=== PATIENT | female | born 1975 | race Two or more races ===

== ENCOUNTER 2024-04-26 21:05 | Inpatient (IN) | payer BC, OTHER ==
[~2024-04-26] VITALS: Ht 160 cm; Wt 59.0 kg
[2024-04-26 22:28] LABS: Basophils # (auto) 0 10 ^3/uL (0-0.2); Basophils % (auto) 0.3 % (0.0-2.0); Eosinophils # (auto) 0.1 10 ^3/uL (0-0.8); Eosinophils % (auto) 1.6 % (0.0-7.0); Hematocrit 37.3 % (36.0-46.0); Hemoglobin 12.4 g/dL (12.2-16.2); Lymphocytes # (auto) 1.8 10 ^3/uL (0.4-5.4); Lymphocytes % (auto) 20.5 % (10.0-50.0); Mean Corpuscular Hemoglobin 30.2 pg (28.0-32.0); Mean Corpuscular Hgb Conc. 33.3 g/dL (32.0-36.0); Mean Corpuscular Volume 90.5 fL (80.0-100.0); Monocytes # (auto) 0.5 10 ^3/uL (0-1.3); Monocytes % (auto) 5.3 % (0.0-12.0); Neutrophils # (auto) 6.5 10 ^3/uL (1.6-8.6); Neutrophils % (auto) 72.3 % (37.0-80.0); Nucleated Red Blood Cells % 0.1 %; Red Blood Cells 4.12 10^6/uL (4.0-5.20)
[2024-04-26 22:44] LABS: Alanine Aminotransferase 30 U/L (7-40); Albumin 4.4 g/dL (3.2-4.8); Alkaline Phosphatase 96 U/L (46-116); Anion Gap 7 (5-15); Aspartate Aminotransferase 23 U/L (13-40); BUN/Creatinine Ratio 16.7 (10.0-20.0); Bilirubin, Total 0.3 mg/dL (0.2-1.0); Blood Urea Nitrogen 13 mg/dL (9-23); Calcium 9.8 mg/dL (8.7-10.4); Carbon Dioxide 25 mmol/L (20-30); Chloride 108 mmol/L (98-107); Glucose 97 mg/dL (74-106); Sodium 140 mmol/L (136-145)
[2024-04-26 22:58] LABS: Urine Bacteria None Seen /hpf (None Seen)
[2024-04-26 23:08] LABS: Urine Blood 3+ /uL (Negative); Urine Clarity Ex.Turbid (Clear); Urine Color Colorless (Yellow); Urine Mucus FEW (None Seen); Urine Protein, UAD 1+ (Negative); Urine Specific Gravity 1.016 (1.001-1.035); Urine Urobilinogen Normal (Negative); Urine WBC 71 /hpf (0 - 5); Urine pH 6.5 (5.0-9.0)
[2024-04-26] MEDS: ONDANSETRON HCL 4 MG/2 ML VIAL IM ONE (23:15)
[2024-04-26] MEDS: MORPHINE SULFATE 4 MG/ML SYR/VIAL IM ONE (23:15)
[2024-04-27] MEDS: cefTRIAXone SOD 1,000 MG VL ONE (01:18)
[2024-04-27] MEDS: MORPHINE SULFATE 4 MG/ML SYR/VIAL IV ONE (01:27)
[2024-04-27] MEDS: cefTRIAXone 2GM/50ML D5W 50 ML IV ONE (01:27)
[2024-04-27] MEDS ORDERED: ONDANSETRON HCL 4 MG/2 ML VIAL IV PRN (02:15)
[2024-04-27] MEDS ORDERED: DOCUSATE SOD 100 MG CAP PO PRN (02:15)
[2024-04-27] MEDS ORDERED: ACETAMINOPHEN 325 MG TAB PO PRN (02:15)
[2024-04-27 02:30] VITALS: RESP 12; O2SAT 100
[2024-04-27] MEDS ORDERED: hydrALAZINE HCL 20 MG/ML VL IV PRN (02:30)
[2024-04-27] MEDS ORDERED: NITROGLYCERIN 0.4 MG SL TAB SL PRN (04:45)
[2024-04-27] MEDS ORDERED: MORPHINE SULFATE INJ 2 MG/ml SYRG IV PRN (04:45)
[2024-04-27] MEDS: SODIUM CHLOR 0.9% PF (SALINE LOCK) 10ML VIAL/SYR IV SCH (04:58)
[2024-04-27 05:29] LABS: Basophils # (auto) 0 10 ^3/uL (0-0.2); Basophils % (auto) 0.3 % (0.0-2.0); Eosinophils # (auto) 0.1 10 ^3/uL (0-0.8); Hematocrit 35.1 % (36.0-46.0); Hemoglobin 11.6 g/dL (12.2-16.2); Lymphocytes # (auto) 1.6 10 ^3/uL (0.4-5.4); Lymphocytes % (auto) 24.3 % (10.0-50.0); Mean Corpuscular Volume 90.8 fL (80.0-100.0); Monocytes # (auto) 0.5 10 ^3/uL (0-1.3); Monocytes % (auto) 7.6 % (0.0-12.0); Neutrophils # (auto) 4.3 10 ^3/uL (1.6-8.6); Neutrophils % (auto) 65.8 % (37.0-80.0); Red Blood Cells 3.87 10^6/uL (4.0-5.20); Red Cell Distribution Width 14.5 % (11.8-14.3); White Blood Cell 6.5 10^3/uL (4.4-10.8)
[2024-04-27 05:44] LABS: Chloride 109 mmol/L (98-107); Sodium 141 mmol/L (136-145)
[2024-04-27 05:45] LABS: Anion Gap 8 (5-15); Calcium 9.3 mg/dL (8.7-10.4); Carbon Dioxide 24 mmol/L (20-30)
[2024-04-27 05:50] LABS: BUN/Creatinine Ratio 17.5 (10.0-20.0); Blood Urea Nitrogen 14 mg/dL (9-23); Glucose 142 mg/dL (74-106)
[2024-04-27] MEDS: MORPHINE SULFATE INJ 2 MG/ml SYRG IV PRN (09:20)
[2024-04-27 13:23] VITALS: BP 137/96; PULSE 75; RESP 18; TEMP 97.8; O2SAT 99
[2024-04-27] MEDS ORDERED: TRAM-626 PO (15:19)
[2024-04-27] MEDS ORDERED: CIPR-273 PO (15:19)
[2024-04-27 15:35] VITALS: BP 130/96; PULSE 75; RESP 18; TEMP 36.6; O2SAT 98
[2024-04-28] MEDS ORDERED: cefTRIAXone 1GM/50ML D5W 50 ML IV SCH (09:00)
== END 2024-04-27 16:30 | disposition home or self-care (01) | DRG 690 ==
LOC: ER 21:05 → OVERFLOW 04-27 04:40 → EAST 04-27 14:53
PROVIDERS: ADMIT Nurse Practitioner Family; ATTEND Nurse Practitioner Family
DX: N39.0 Urinary tract infection, site not specified (principal); N20.0 Calculus of kidney; R31.0 Gross hematuria; Z98.84 Bariatric surgery status; Z90.710 Acquired absence of both cervix and uterus; Z93.6 Other artificial openings of urinary tract status; Z79.899 Other long term (current) drug therapy
CPT/HCPCS: 36415; 74176; 80048; 80053; 81001; 83605; 85025; 87040; G0378; J0696; J2405